=== PATIENT | female | born 1935 | race Caucasian/White ===

== ENCOUNTER → 2017-02-27 | Outpatient (CLI) | payer MEDICARE, OTHER ==
[~2017-02-27] MED LIST: AMITRYPTYLINE; AMLODIPINE BESY10 MG PO; ASPIRIN; ASPIRIN81 M2 PO; AVANDIA; AVAPRO300 M1 PO; BENADRYL; BUSPIRONE HCL10 M1 PO; CALCIUM 600 +1 EAC2 PO; COZAAR; ECOTRIN81 M1 PO; FLUOXETINE HCL10 MG PO; GLIPIZIDE10 MG PO; GLUCOPHAGE XR500 MG; GLUCOPHAGE500 MG PO; GLUCOTROL; HYDROXYZINE HCL25 M1 PO; LEVAQUIN750 MG PO; LIPITOR; LOPRESSOR; LOPRESSOR100 MG PO; LOVASTATIN20 MG PO; METFORMIN; METOPROLOL SUC100 MG PO; METOPROLOL TAR100 MG PO; MULTI-VITAMIN1 TAB PO; ONGLYZA5 MG PO
--- NOTE | ~2017-02-27 | ST ---
Unit #: [id number] #: [id number] Patient: RAYA RIVERO [id number] [address] [address] [id number] O MR#: [id number] NAME: RAYA RIVERO. : 1935 SEX: F STUDY DATE/TIME: 02/27/2017 UNIT: [facility] ROOM: STUDY DESCRIPTION: Stress ECG Attending Physician: Harshad Roth M.D. Referring Physician: Harshad Roth M.D. Primary Care Physician: Bernarda Garrison M.D. CARDIOLOGY REPORT EXAM Stress ECG. FINDINGS Result text under nuclear order number. Please see this order for result text. Dictated by... Arpan Flynn/roxanne TD: 02/27/2017 13:36 JOB #: [id number] CARDIOLOGY REPORT Page 1 of 1 X Edwardo Durbin MD CARDIOLOGY REPORT
--- NOTE | ~2017-02-27 | TH ---
Unit #: [id number] #: [id number] Patient: RAYA RIVERO [id number] [address] [address] [id number] O MR#: [id number] NAME: RAYA RIVERO. : 1935 SEX: F STUDY DATE/TIME: 02/27/2017 UNIT: [facility] ROOM: STUDY DESCRIPTION: Stress nuclear Attending Physician: Harshad Roth M.D. Referring Physician: Harshad Roth M.D. Primary Care Physician: Bernarda Garrison M.D. CARDIOLOGY REPORT EXAM Stress nuclear and ECG. INDICATION Right bundle branch block, chest pain, shortness of breath, diabetes, hypertension, dyslipidemia, unable to exercise adequately. SUMMARY The patient was given Lexiscan intravenously while at rest as well as Tc-99m Cardiolite, 11.27 and 33.8 mCi, at rest and stress respectively. Appropriate views were obtained. FINDINGS The patient manifested right bundle branch block on resting ECG and, with stress, there was nonsustained SVT, five beats in duration, which was asymptomatic. There were frequent PACs also. Heart rate increased from 73 to 90 and blood pressure was essentially stable at 151/65 to 149/60. The patient experienced abdominal cramping but no chest pain. Planar images demonstrate diaphragmatic artifact but otherwise normal perfusion throughout the myocardium. RV appears upper limits of normal in size. There is no significant patient motion noted during acquisition of the rest or stress images. There is no significant lung uptake, LV or RV enlargement. Summed stress score is 4. Summed difference score is zero. Gated perfusion wall motion analysis demonstrates normal wall motion throughout the myocardium with end-diastolic volume of 68 mL. Ejection fraction greater than 65%. IMPRESSION Myocardial perfusion scan shows no ischemia or infarction. Normal study. Normal wall motion with excellent ejection fraction. Dictated by... Arpan Flynn TD: 02/27/2017 13:30 JOB #: [id number] Unit #: [id number] #: [id number] Patient: RAYA RIVERO CARDIOLOGY REPORT Page 1 of 1 X Edwardo Durbin MD CARDIOLOGY REPORT
== END | disposition home or self-care (01) ==
LOC: CNUC 07:47
DX: R07.9 Chest pain, unspecified (principal)
CPT/HCPCS: 78452; 93017; 93306; A9500; J2785